=== PATIENT | female | born 1990 | race American Indian/Alaskan Native ===

== ENCOUNTER 2016-08-03 14:57 | Emergency (ER) | payer MEDICAID ==
[2016-08-03 15:03] VITALS: BMI 45.1
[2016-08-03 15:07] VITALS: TEMP 98.6
[2016-08-03] MEDS ORDERED: Sodium Chloride 0.9% 1,000 ML IV STA ×2 (15:11→15:19)
--- NOTE | 2016-08-03 15:19 | ED PDOC ---
Arrival/HPI - General Chief Complaint: Female Genitourinary Time Seen by Provider: 08/03/16 15:08 Historian: Patient - History of Present Illness Narrative History of Present Illness (Text): 08/03/16 15:13 26 y/o female, no significant pmh, LMP 04/23/2016, , approx. 14 weeks , c/o pelvic cramp x 2 days and vaginal bleeding with fatigue started this morning with no fall or trauma. Pt. stated that she has urinary frequency/ urgency for the past 2 days with cramp, noted to have vaginal bleeding with 3 episodes of bright red blood this morning which the bleeding resolved, admits feeling fatigue today as well with dizziness earlier but resolved, no night sweat, no nausea or vomiting, no headache, no rash, no night sweat, no recent traveling, no coughing, no other medical or psychological complaints. Past Medical History - Provider Review Nursing Documentation Reviewed: Yes - Infectious Disease Hx of Infectious Diseases: None - Psychiatric Hx Anxiety: Yes Hx Substance Use: No - Surgical History Hx Section: Yes (2007) - Anesthesia Hx Anesthesia: Yes Hx Anesthesia Reactions: No Hx Malignant Hyperthermia: No Family/Social History - Physician Review Nursing Documentation Reviewed: Yes Family/Social History: Unknown Family HX Smoking Status: Never Smoked Hx Alcohol Use: Yes Hx Substance Use: No Allergies/Home Meds Allergies/Adverse Reactions: Allergies No Known Allergies Allergy (Verified 08/03/16 15:03) Home Medications: Home Meds Medication Instructions Recorded Confirmed Multivit/Folic Acid/I 1 tab PO DAILY 08/03/16 08/03/16 [] Review of Systems - Review of Systems Constitutional: Fatigue. absent: Fevers Eyes: absent: Vision Changes ENT: absent: Hearing Changes Respiratory: absent: SOB, Cough Cardiovascular: absent: Chest Pain Gastrointestinal: Abdominal Pain. absent: Nausea, Vomiting Genitourinary Female: Frequency, Vaginal Bleeding. absent: Dysuria, Hematuria, Urine Output Changes, Vaginal Discharge Musculoskeletal: absent: Arthralgias, Myalgias Skin: absent: Rash, Pruritis Neurological: Dizziness. absent: Headache, Focal Weakness, Gait Changes, Speech Changes, Facial Droop, Disequilibrium, Seizure Psychiatric: absent: Anxiety, Depression, Suicidal Ideation Physical Exam Vital Signs Reviewed: Yes Vital Signs Temp Pulse Resp BP Pulse Ox 08/03/16 15:05 98.6 F 82 19 99/66 L 97 Temperature: Afebrile Blood Pressure: Hypotensive Pulse: Regular Respiratory Rate: Normal Appearance: Positive for: Well-Appearing, Non-Toxic, Comfortable Pain Distress: Mild Mental Status: Positive for: Alert and Oriented X 3 - Systems Exam Head: Present: Atraumatic, Normocephalic Pupils: Present: PERRL Extroacular Muscles: Present: EOMI Conjunctiva: Present: Normal Ears: Present: NORMAL TM, Normal Canal. No: Erythema Mouth: Present: Moist Mucous Membranes Neck: Present: Normal Range of Motion Respiratory/Chest: Present: Clear to Auscultation, Good Air Exchange. No: Respiratory Distress, Accessory Muscle Use Cardiovascular: Present: Regular Rate and Rhythm, Normal S1, S2. No: Murmurs Abdomen: Present: Tenderness (mild suprapubic tenderness, no RLQ/RUQ tenderness. ), Normal Bowel Sounds. No: Distention, Peritoneal Signs, Rebound, Guarding Genitourinary/Pelvic Exam: Present: Normal External Genitalia, Cervical os Closed, Other (Female hospital director: YOU Tolliver). No: Vaginal Discharge, Vaginal Bleeding (bright red blood clot noted on the vaginal canal), Vaginal Lesions, Adenexal Tenderness, Adenexal Mass, Cervical Motion Tendernes, Odor Back: Present: Normal Inspection. No: CVA Tenderness Upper Extremity: Present: Normal Inspection. No: Cyanosis, Edema Lower Extremity: Present: Normal Inspection. No: Edema Neurological: Present: GCS=15, Speech Normal, Motor Func Grossly Intact, Gait Normal, Memory Normal Skin: Present: Warm, Dry, Normal Color. No: Rashes Psychiatric: Present: Alert, Oriented x 3, Normal Insight, Normal Concentration Medical Decision Making ED Course and Treatment: 08/03/16 15:11 Differential: Threatened vs. cystitis vs. dehydration vs. anemia -labs/ua/beta hcg -transvaginal sonogram -IVF/tylenol -psychology department chair -will the obgyn organic preparation analyst 08/03/16 17:50 -Labs are non-significant with hgb 10.9 and beta hcg 42398 -UA show no UTI -sonogram show: Single live intrauterine gestation of approximately 15 weeks 1 day gestational age. Please note that anatomic evaluation was not performed at this time. No evidence placenta previa. Transverse lie. heart rate 143. Cervix closed. -Pt. has no pain now. -Blood is O negative, rhogam ordered. Dr. Mcclain agreed on the order. -Pt. is walking around now without feeling fatigue or tired. -There is no active bleeding. -Discharge home with education on pelvic rest, bed rest, avoid exercise and gym , no excessive walking, no sexual activities until clear by your own obgyn, follow up with your own pmd and obgyn within 2 days, return to the ER for any new or worsening signs or symptoms. - Lab Interpretations Lab Results: 08/03/16 15:20 08/03/16 15:20 Lab Results 08/03/16 15:20: Blood Type O NEGATIVE, Antibody Screen Negative, BBK History Checked No verified bt 08/03/16 15:20: Beta HCG, Quant 81461.00 H 08/03/16 15:20: Sodium 133, Potassium 3.7, Chloride 102, Carbon Dioxide 25, Anion Gap 10, BUN 9, Creatinine 0.6, Est GFR ( Amer) > 60, Est GFR (Non- Af Amer) > 60, Random Glucose 82, Calcium 9.4, Total Bilirubin 0.4, AST 23, ALT 27, Alkaline Phosphatase 63, Total Protein 7.2, Albumin 3.6, Globulin 3.6, Albumin/Globulin Ratio 1.0 L 08/03/16 15:20: Urine Color Yellow, Urine Appearance Sl cloudy, Urine pH 6.5, Ur Specific [place] 1.025, Urine Protein Negative, Urine Glucose (UA) Negative, Urine Ketones Negative, Urine Blood Negative, Urine Nitrate Negative, Urine Bilirubin Negative, Urine Urobilinogen 1.0 H, Ur Leukocyte Esterase Negative 08/03/16 15:20: WBC 7.9, RBC 3.82, Hgb 10.9 L, Hct 31.4 L, MCV 82.2, MCH 28.5, MCHC 34.7, RDW 12.8, Plt Count 380, MPV 8.6, Gran % 54.2, Lymph % (Auto) 34.7, [place] % (Auto) 7.4 H, Eos % (Auto) 3.4, Baso % (Auto) 0.3, Gran # 4.28, Lymph # 2.7, [place] # 0.6, Eos # 0.3, Baso # 0.02 I have reviewed the lab results: Yes Interpretation: Abnormal lab values (beta hcg 15809, hgb 10.9) - RAD Interpretation Radiology Orders: 08/03/16 15:11 AGE [US] Stat HISTORY: +, vaginal bleeding COMPARISON: Not available TECHNIQUE: Transabdominal FINDINGS: The examination demonstrates a single live intrauterine gestation. The fetus is in transverse lie with head towards maternal right. The heart rate is 143 beats per minute. There is a grossly normal quantity of amniotic fluid. A fundal placenta is noted. The cervix is closed and measures 3.7 cm in length. No evidence of placenta previa. biometry yields a gestational age of 15 weeks 1 day. CLEMENCIA by ultrasound is 01/24/2017. The right ovary measures 2.8 x 2.4 x 2.8 cm. Normal flow is demonstrated. The left ovary measures 2.6 x 2.3 x 1.6 cm. Normal flow is demonstrated. IMPRESSION: Single live intrauterine gestation of approximately 15 weeks 1 day gestational age. Please note that anatomic evaluation was not performed at this time. No evidence placenta previa. Transverse lie. heart rate 143. Cervix closed. Blanking Press Operator: Radiologist - Medication Orders Current Medication Orders: Discontinued Medications Acetaminophen (Tylenol 325mg Tab) 650 mg PO STAT STA Stop: 08/03/16 15:13 Last Admin: 08/03/16 15:31 Dose: 650 mg Sodium Chloride (Sodium Chloride 0.9%) 1,000 mls @ 999 mls/hr IV .Q1H1M STA Stop: 08/03/16 16:19 Last Admin: 08/03/16 15:27 Dose: 999 mls/hr - PA / ADMIN ASST / Resident Statement MD/DO has reviewed & agrees with the documentation as recorded. Disposition/Present on Arrival - Present on Arrival Any Indicators Present on Arrival: No History of DVT/PE: No History of Uncontrolled Diabetes: No Urinary Catheter: No History of Decub. Ulcer: No History Surgical Site Infection Following: None - Disposition Have Diagnosis and Disposition been Completed?: Yes Diagnosis: , Vaginal bleeding Disposition: HOME/ ROUTINE Disposition Time: 17:57 Patient Plan: Discharge Patient Problems: Current Active Problems Problem Status Onset Acute Vaginal bleeding Acute Condition: IMPROVED Additional Instructions: Discharge home with education on pelvic rest, bed rest, avoid exercise and gym, no excessive walking, no sexual activities until clear by your own obgyn, follow up with your own pmd and obgyn within 2 days, return to the ER for any new or worsening signs or symptoms. Referrals: Bing CROW,Leydi Red MD [Primary Care Provider] - Follow up with primary Maico Christy DO [Staff Provider] - Follow up with primary Forms: WORK NOTE
[2016-08-03 15:29] LABS: ADD MANUAL DIFF? NO
[2016-08-03 15:49] LABS: ALKALINE PHOSPHATASE 63 U/L (38-133); ALT/SGPT 27 U/L (7-56); AST/SGOT 23 U/L (15-39); BILIRUBIN,TOTAL 0.4 mg/dL (0.2-1.3); BLOOD UREA NITROGEN 9 mg/dL (7-21); CALCIUM 9.4 mg/dL (8.4-10.5); CARBON DIOXIDE 25 mmol/L (21-33); CHLORIDE 102 mmol/L (98-107); GFR AFRICAN-AMERICAN > 60; GLUCOSE,RANDOM 82 mg/dL (70-110); POTASSIUM 3.7 mmol/L (3.6-5.0); SODIUM 133 mmol/L (132-148); TOTAL PROTEIN 7.2 g/dL (5.8-8.3)
[2016-08-03 16:08] LABS: BASO # 0.02 K/mm3 (0.0-2.0); BASO % 0.3 % (0.0-3.0); EOS # 0.3 (0.0-0.7); EOS % 3.4 % (1.5-5.0); GRAN # 4.28 (1.4-6.5); GRAN % 54.2 % (50.0-68.0); HEMATOCRIT 31.4 % (36.0-48.0); LYMPH # 2.7 (1.2-3.4); LYMPH % 34.7 % (22.0-35.0); MEAN CELL VOLUME 82.2 fL (80.0-105.0); MEAN CORPUSCULAR HEMOGLOBIN 28.5 pg (25.0-35.0); MEAN CORPUSCULAR HGB CONC 34.7 g/dl (31.0-37.0); MEAN PLATELET VOLUME 8.6 fl (7.0-11.0); MONO # 0.6 (0.1-0.6); MONO % 7.4 % (1.0-6.0); PLATELET COUNT 380 10^3/uL (120.0-450.0); RED CELL DISTRIBUTION WIDTH 12.8 % (11.5-14.5); WHITE BLOOD COUNT 7.9 10^3/ul (4.5-11.0)
[2016-08-03 16:17] LABS: PH,URINE 6.5 (4.7-8.0); URINE BILIRUBIN NEGATIVE (NEGATIVE); URINE BLOOD NEGATIVE (NEGATIVE); URINE GLUCOSE (UA) NEGATIVE (NEGATIVE); URINE KETONE NEGATIVE (NEGATIVE); URINE LEUKOCYTE ESTERASE NEGATIVE Leu/uL (NEGATIVE); URINE PROTEIN NEGATIVE mg/dL (<30 mg/dL)
[2016-08-03 16:21] LABS: URINE APPEARANCE SL CLOUDY (CLEAR); URINE COLOR YELLOW (YELLOW)
--- NOTE | 2016-08-03 17:17 | US ---
PROCEDURE: Obstetrical ultrasound examination HISTORY: +, vaginal bleeding COMPARISON: Not available TECHNIQUE: Transabdominal FINDINGS: The examination demonstrates a single live intrauterine gestation. The fetus is in transverse lie with head towards maternal right. The heart rate is 143 beats per minute. There is a grossly normal quantity of amniotic fluid. A fundal placenta is noted. The cervix is closed and measures 3.7 cm in length. No evidence of placenta previa. biometry yields a gestational age of 15 weeks 1 day. CLEMENCIA by ultrasound is 01/24/2017. The right ovary measures 2.8 x 2.4 x 2.8 cm. Normal flow is demonstrated. The left ovary measures 2.6 x 2.3 x 1.6 cm. Normal flow is demonstrated. IMPRESSION: Single live intrauterine gestation of approximately 15 weeks 1 day gestational age. Please note that anatomic evaluation was not performed at this time. No evidence placenta previa. Transverse lie. heart rate 143. Cervix closed.
[2016-08-03 19:30] VITALS: BP 134/71; PULSE 86; RESP 20; O2SAT 98
== END 2016-08-03 19:53 | disposition home or self-care (01) ==
LOC: ED 14:57
DX: O46.92 Antepartum hemorrhage, unspecified, second trimester (principal); Z3A.15 15 weeks gestation of pregnancy
CPT/HCPCS: 76815; 80053; 81003; 84702; 85025; 86850; 86900; 96360; 99285; J2792; J7040

== ENCOUNTER 2016-09-02 17:33 | Emergency (ER) | payer MEDICAID ==
[2016-09-02 17:46] VITALS: BP 99/64; BMI 44.0
[2016-09-02 18:31] LABS: PH,URINE 6.5 (4.7-8.0); URINE BILIRUBIN SMALL (NEGATIVE); URINE BLOOD NEGATIVE (NEGATIVE); URINE GLUCOSE (UA) NEGATIVE (NEGATIVE); URINE KETONE 15 mg/dL (NEGATIVE); URINE LEUKOCYTE ESTERASE NEGATIVE Leu/uL (NEGATIVE); URINE PROTEIN TRACE mg/dL (<30 mg/dL)
[2016-09-02 18:35] LABS: URINE APPEARANCE SL CLOUDY (CLEAR); URINE COLOR YELLOW (YELLOW)
--- NOTE | 2016-09-02 18:44 | ED PDOC ---
Arrival/HPI - General Chief Complaint: Abdominal Pain Time Seen by Provider: 09/02/16 17:50 Historian: Patient - History of Present Illness Narrative History of Present Illness (Text): 09/02/16 18:41 26yo female present with complaint of suprapubic abdominal pain since this morning. she also notes dark yellow odorous urine. states she didn't call her OB, because they always refer her to ED anyway. Admits to nausea, states she takes antiemesis for it currently. Denies vomiting, vaginal discharge, diarrhea, constipation ,fever, chills, back pain, any other complaint. Past Medical History - Provider Review Nursing Documentation Reviewed: Yes - Infectious Disease Hx of Infectious Diseases: None - Psychiatric Hx Anxiety: Yes Hx Substance Use: No - Surgical History Hx Section: Yes (2007) - Anesthesia Hx Anesthesia: Yes Hx Anesthesia Reactions: No Hx Malignant Hyperthermia: No Family/Social History - Physician Review Nursing Documentation Reviewed: Yes Family/Social History: Unknown Family HX Smoking Status: Never Smoked Hx Alcohol Use: Yes Hx Substance Use: No Allergies/Home Meds Allergies/Adverse Reactions: Allergies No Known Allergies Allergy (Verified 09/02/16 17:44) Home Medications: Home Meds Medication Instructions Recorded Confirmed Multivit/Folic Acid/I 1 tab PO DAILY 08/03/16 09/02/16 [] Ondansetron HCl [Zofran] 4 mg PO PRN PRN 09/02/16 09/02/16 Review of Systems - Physician Review All systems were reviewed & negative as marked: Yes - Review of Systems Constitutional: Normal Eyes: Normal ENT: Normal Respiratory: Normal Cardiovascular: Normal Gastrointestinal: Abdominal Pain, Nausea. absent: Constipation, Diarrhea, Vomiting, Hematochezia, Hematemesis Genitourinary Female: Normal Musculoskeletal: Normal Skin: Normal Neurological: Normal Endocrine: Normal Hemo/Lymphatic: Normal Psychiatric: Normal Physical Exam Vital Signs Reviewed: Yes Vital Signs Temp Pulse Resp BP Pulse Ox 09/02/16 20:56 95 H 16 99 09/02/16 20:55 98.0 F 95 H 16 99 09/02/16 17:37 98.6 F 92 H 18 99/64 L 98 Temperature: Afebrile Blood Pressure: Normal Pulse: Regular Respiratory Rate: Normal Appearance: Positive for: Well-Appearing, Non-Toxic, Comfortable Pain Distress: None Mental Status: Positive for: Alert and Oriented X 3 - Systems Exam Head: Present: Atraumatic, Normocephalic Pupils: Present: PERRL Extroacular Muscles: Present: EOMI Conjunctiva: Present: Normal Mouth: Present: Moist Mucous Membranes Neck: Present: Normal Range of Motion Respiratory/Chest: Present: Clear to Auscultation, Good Air Exchange. No: Respiratory Distress, Accessory Muscle Use Cardiovascular: Present: Regular Rate and Rhythm, Normal S1, S2. No: Murmurs Abdomen: Present: Normal Bowel Sounds, Other (Soft). No: Tenderness, Distention , Peritoneal Signs, Rebound, Guarding, McBurney's Point Tender, Rovsing's Sign Present Back: Present: Normal Inspection Upper Extremity: Present: Normal Inspection. No: Cyanosis, Edema Lower Extremity: Present: Normal Inspection. No: Edema Neurological: Present: GCS=15, CN II-XII Intact, Speech Normal Skin: Present: Warm, Dry, Normal Color. No: Rashes Psychiatric: Present: Alert, Oriented x 3, Normal Insight, Normal Concentration Medical Decision Making ED Course and Treatment: 09/03/16 01:09 PT in ED for stated history. She denied vaginal bleeding. US FINDINGS: A limited study only was performed, in the emergency department. Single fetus identified, cephalic position. Calculated sonographic gestational age is 19 weeks, 3 days. Estimated delivery date is 01/24/2017. heart motion visualized, at 143 beats/min. The anatomy was not specifically assessed on this exam. Posterior and fundal location of the placenta. No evidence of placental abruption. No evidence of placenta previa. SURINDER was not measured. Cervical length is 3.7 cm (normal greater than 3 cm), measured transabdominally. Ovaries could not be visualized. IMPRESSION: 19 week, 3 day intrauterine with heart motion. No acute abnormality identified on this limited exam. She have cystitis and was treated with Macrobic. Result was DW the pt. she have a OB and was referred to her OB. TRT ED for any new or worsening symptoms. - Lab Interpretations Lab Results: Lab Results 09/02/16 18:18: Urine Color Yellow, Urine Appearance Sl cloudy, Urine pH 6.5, Ur Specific [place] 1.020, Urine Protein Trace H, Urine Glucose (UA) Negative, Urine Ketones 15 H, Urine Blood Negative, Urine Nitrate Positive H, Urine Bilirubin Small H, Urine Urobilinogen 1.0 H, Ur Leukocyte Esterase Negative, Urine RBC 0 - 2, Urine WBC 1 - 3, Ur Epithelial Cells 4 - 5, Urine Bacteria Mod - RAD Interpretation Radiology Orders: 09/02/16 18:02 AGE [US] Stat - Medication Orders Current Medication Orders: Discontinued Medications Nitrofurantoin Macrocrystals (Macrobid) 100 mg PO ONCE STA Stop: 09/02/16 20:33 Last Admin: 09/02/16 20:53 Dose: 100 mg Disposition/Present on Arrival - Present on Arrival Any Indicators Present on Arrival: No History of DVT/PE: No History of Uncontrolled Diabetes: No Urinary Catheter: No History of Decub. Ulcer: No History Surgical Site Infection Following: None - Disposition Have Diagnosis and Disposition been Completed?: Yes Diagnosis: UTI (urinary tract infection) Disposition: HOME/ ROUTINE Disposition Time: 20:35 Patient Plan: Discharge Condition: STABLE Discharge Instructions (ExitCare): Urinary Tract Infection in Women (ED) Additional Instructions: Follow up with your OB Return to ED for any new or worsening symptoms Prescriptions: Nitrofurantoin Macrocrystals [Macrobid] 100 mg PO BID #14 cap Referrals: Brian Liu, [Primary Care Provider] - Follow up with primary Forms: WORK NOTE
[2016-09-02 18:48] LABS: URINE RBC 0 - 2 /hpf (0-2)
[2016-09-02 18:49] LABS: URINE BACTERIA MOD (NEG)
--- NOTE | 2016-09-02 20:25 | US ---
EXAM: US After First Trimester, Transabdominal CLINICAL HISTORY: 26 years old, female; Pain; complicated by abdominal or pelvic pain; Generalized abdominal pain; Second trimester; Gestational age or lmp: 19 weeks 5 days; TECHNIQUE: Real-time transabdominal obstetrical ultrasound of the maternal pelvis and a second or third trimester with image documentation. EXAM DATE/TIME: 09/02/2016 6:02 PM COMPARISON: Prior obstetrical ultrasound of 08/03/2016 FINDINGS: A limited study only was performed, in the emergency department. Single fetus identified, cephalic position. Calculated sonographic gestational age is 19 weeks, 3 days. Estimated delivery date is 01/24/2017. heart motion visualized, at 143 beats/min. The anatomy was not specifically assessed on this exam. Posterior and fundal location of the placenta. No evidence of placental abruption. No evidence of placenta previa. SURINDER was not measured. Cervical length is 3.7 cm (normal greater than 3 cm), measured transabdominally. Ovaries could not be visualized. IMPRESSION: 19 week, 3 day intrauterine with heart motion. No acute abnormality identified on this limited exam. See above for remaining findings.
[2016-09-02 20:56] VITALS: PULSE 95; RESP 16; TEMP 98; O2SAT 99
== END 2016-09-02 20:57 | disposition home or self-care (01) ==
LOC: ED 17:33
DX: O23.42 Unspecified infection of urinary tract in pregnancy, second trimester (principal); Z3A.19 19 weeks gestation of pregnancy

== ENCOUNTER 2017-08-23 18:13 | Emergency (ER) | payer MEDICAID ==
[2017-08-23 18:13] VITALS: BMI 44.0
[2017-08-23 18:35] VITALS: RESP 18; TEMP 98.1
--- NOTE | 2017-08-23 18:38 | ED PDOC ---
Arrival/HPI - General Chief Complaint: Back Pain Time Seen by Provider: 08/23/17 18:37 Historian: Patient - History of Present Illness Narrative History of Present Illness (Text): 08/23/17 18:38 27 year old female, pmh including UTI, nkda, complaining of lt. lower back pain x 2 weeks with no fall or trauma. Aching pain, aggravated by movement, non- radiating, no numbness or tingling no rash, no night sweat, no headache or neck pain, no other medical or psychological complaints. Past Medical History - Provider Review Nursing Documentation Reviewed: Yes - Infectious Disease Hx of Infectious Diseases: None - Psychiatric Hx Anxiety: Yes Hx Substance Use: No - Surgical History Hx Section: Yes (2007) - Anesthesia Hx Anesthesia: Yes Hx Anesthesia Reactions: No Hx Malignant Hyperthermia: No Family/Social History - Physician Review Nursing Documentation Reviewed: Yes Family/Social History: Unknown Family HX Smoking Status: Never Smoked Hx Alcohol Use: Yes Frequency of alcohol use: Socially Hx Substance Use: No Allergies/Home Meds Allergies/Adverse Reactions: Allergies No Known Allergies Allergy (Verified 08/23/17 18:35) Review of Systems - Review of Systems Constitutional: absent: Fatigue, Fevers Eyes: absent: Vision Changes ENT: absent: Hearing Changes Respiratory: absent: SOB, Cough Cardiovascular: absent: Chest Pain Gastrointestinal: absent: Abdominal Pain, Nausea, Vomiting Musculoskeletal: Back Pain. absent: Arthralgias Skin: absent: Rash, Pruritis Neurological: absent: Headache, Dizziness Psychiatric: absent: Anxiety, Depression, Suicidal Ideation Physical Exam Vital Signs Reviewed: Yes Vital Signs Temp Pulse Resp BP Pulse Ox 08/23/17 20:32 98.1 F 80 18 113/62 100 08/23/17 20:15 98.1 F 79 18 102/60 100 08/23/17 18:32 98.1 F 89 18 122/77 99 Temperature: Afebrile Blood Pressure: Normal Pulse: Regular Respiratory Rate: Normal Appearance: Positive for: Well-Appearing, Non-Toxic, Comfortable Pain Distress: Moderate Mental Status: Positive for: Alert and Oriented X 3 - Systems Exam Head: Present: Atraumatic, Normocephalic Pupils: Present: PERRL Extroacular Muscles: Present: EOMI Conjunctiva: Present: Normal Mouth: Present: Moist Mucous Membranes Neck: Present: Normal Range of Motion Respiratory/Chest: Present: Clear to Auscultation, Good Air Exchange. No: Respiratory Distress, Accessory Muscle Use Cardiovascular: Present: Regular Rate and Rhythm, Normal S1, S2. No: Murmurs Abdomen: No: Tenderness, Distention, Peritoneal Signs Back: Present: Normal Inspection, Paraspinal Tenderness (+ttp on the lt. paraspinal muscle region of the lumbar Spine). No: CVA Tenderness, Midline Tenderness, Pain with Leg Raise, Decubitus Ulcer Upper Extremity: Present: Normal Inspection. No: Cyanosis, Edema Lower Extremity: Present: Normal Inspection. No: Edema Neurological: Present: GCS=15, CN II-XII Intact, Speech Normal, Motor Func Grossly Intact, Gait Normal, Memory Normal Skin: Present: Warm, Dry, Normal Color. No: Rashes Psychiatric: Present: Alert, Oriented x 3, Normal Insight, Normal Concentration Medical Decision Making ED Course and Treatment: 08/23/17 18:48 -Urine hcg -Urinalysis -LS spine xray -Toradol and valium 08/23/17 20:21 -Urine hcg is negative -Urinalysis show no UTI -LS spine xray show no fracture or subluxation -Pt. feels completely relief, request to be discharged home -Discharge home with motrin, flexeril, lidoderm patch, follow up with your own pmd within 2 days, return to the ER for any new or worsening signs or symptoms. - Lab Interpretations Lab Results: Lab Results 08/23/17 18:48: Urine Color Colorless, Urine Appearance Clear, Urine pH 6.0, Ur Specific [place] 1.025, Urine Protein Negative, Urine Glucose (UA) Negative, Urine Ketones Negative, Urine Blood Negative, Urine Nitrate Negative, Urine Bilirubin Negative, Urine Urobilinogen 0.2, Ur Leukocyte Esterase Negative - RAD Interpretation Radiology Orders: 08/23/17 18:44 LS SPINE WITH OBL > 18 YRS OLD [RAD] Stat unremarkable radiograph of the lumbar spine Customs Officer: Radiologist - Medication Orders Current Medication Orders: Discontinued Medications Diazepam (Valium) 5 mg PO ONCE ONE PRN Reason: Protocol Stop: 08/23/17 18:45 Last Admin: 08/23/17 19:01 Dose: 5 mg Ketorolac Tromethamine (Toradol) 60 mg IM STAT STA Stop: 08/23/17 18:45 Last Admin: 06/10/18 19:01 Dose: 60 mg MAR Pain Assessment Document 08/23/17 19:01 LA (Rec: 08/23/17 19:01 LA [id number]) Pain Reassessment Is this a pain reassessment? No Sleep Is patient sleeping during reassessment? No Presence of Pain Presence of Pain Yes Pain Scale Used Pain Scale Used Numeric Location Upper or Lower Lower Pain Location Body Site Back Description Description Intermittent Intensity of Pain at present 4 IM Administration Charges Document 08/23/17 19:01 LA (Rec: 08/23/17 19:01 LA [id number]) Injection Site MAR Injection Site Right Gluteus Fredo Charges for Administration # of IM Administrations 1 Re-Assess: MAR Pain Assessment Document 08/23/17 20:01 LA (Rec: 08/23/17 20:32 LA [id number]) Pain Reassessment Is this a pain reassessment? Yes Sleep Is patient sleeping during reassessment? Yes - PA / CORRECTIONAL SUPERVISOR LIEUTENANT / Resident Statement MD/DO has reviewed & agrees with the documentation as recorded. Disposition/Present on Arrival - Present on Arrival Any Indicators Present on Arrival: No History of DVT/PE: No History of Uncontrolled Diabetes: No Urinary Catheter: No History of Decub. Ulcer: No History Surgical Site Infection Following: None - Disposition Have Diagnosis and Disposition been Completed?: Yes Diagnosis: Low back pain Disposition: HOME/ ROUTINE Disposition Time: 18:48 Patient Plan: Discharge Condition: IMPROVED Additional Instructions: -Discharge home with motrin, flexeril, lidoderm patch, follow up with your own pmd within 2 days, return to the ER for any new or worsening signs or symptoms. Prescriptions: Cyclobenzaprine [Cyclobenzaprine HCl] 10 mg PO TID PRN #21 tab PRN Reason: Other Ibuprofen [Motrin] 600 mg PO QID PRN #30 tab PRN Reason: Other Lidocaine 5% [Lidoderm] 1 patch TOP DAILY PRN #14 patch PRN Reason: Other Referrals: [facility] [place]] - Follow up with primary Forms: WORK NOTE
[2017-08-23 19:55] LABS: URINE BILIRUBIN NEGATIVE (NEGATIVE); URINE BLOOD NEGATIVE (NEGATIVE); URINE GLUCOSE (UA) NEGATIVE (NEGATIVE); URINE LEUKOCYTE ESTERASE NEGATIVE Leu/uL (NEGATIVE); URINE PROTEIN NEGATIVE mg/dL (<30 mg/dL); URINE UROBILINOGEN 0.2 E.U./dL (<1 E.U./dL)
[2017-08-23 19:57] LABS: URINE APPEARANCE CLEAR (CLEAR); URINE COLOR COLORLESS (YELLOW)
[2017-08-23 20:16] VITALS: O2SAT 100
[2017-08-23 20:34] VITALS: BP 113/62; PULSE 80
--- NOTE | 2017-08-24 10:07 | RAD ---
PROCEDURE: Radiographs of the Lumbar Spine. HISTORY: low back pain x 2 weeks COMPARISON: No prior. FINDINGS: BONES: Normal alignment. No listhesis. No fracture. DISC SPACES: Unremarkable. OTHER FINDINGS: None. IMPRESSION: Unremarkable radiographs of the lumbar spine.
== END 2017-08-23 20:32 | disposition home or self-care (01) ==
LOC: ED 18:13
DX: M54.5 Low back pain (principal)
CPT/HCPCS: 72110; 81003; 96372; 99283; J1885

== ENCOUNTER 2018-01-03 11:11 | Emergency (ER) | payer MEDICAID ==
[2018-01-03 11:12] VITALS: BMI 44.0
[2018-01-03 11:26] VITALS: BP 128/86; PULSE 71; RESP 18; TEMP 98.3; O2SAT 98
--- NOTE | 2018-01-03 11:49 | ED PDOC ---
Arrival/HPI - General Historian: Patient - History of Present Illness Narrative History of Present Illness (Text): 01/03/18 11:41 28yo female morbidly obese female with no pmhx who present with complaint of suprapubic and lower back pain x 3days. +Nausea and urinary frequency. Denies dysuria, hematuria, vomiting, diarrhea, constipation, fever, chills, vaginal discharge, any other complaint. Notes that her LMP was November 28. <Dilcia Esquivel A - Last Filed: 01/03/18 15:47> <Hugo Mcclain - Last Filed: 01/05/18 20:58> - General Chief Complaint: Abdominal Pain Time Seen by Provider: 01/03/18 11:33 Past Medical History - Provider Review Nursing Documentation Reviewed: Yes - Infectious Disease Hx of Infectious Diseases: None - Psychiatric Hx Anxiety: Yes Hx Substance Use: No - Surgical History Hx Section: Yes (2007) - Anesthesia Hx Anesthesia: Yes Hx Anesthesia Reactions: No Hx Malignant Hyperthermia: No <Dilcia Esquivel - Last Filed: 01/03/18 15:47> Family/Social History - Physician Review Nursing Documentation Reviewed: Yes Family/Social History: Unknown Family HX Smoking Status: Never Smoked Hx Alcohol Use: Yes Frequency of alcohol use: Socially Hx Substance Use: No <Dilcia Esquivel A - Last Filed: 01/03/18 15:47> Allergies/Home Meds <Dilcia Esquivel A - Last Filed: 01/03/18 15:47> <Hugo Mcclain - Last Filed: 01/05/18 20:58> Allergies/Adverse Reactions: Allergies No Known Allergies Allergy (Verified 01/03/18 11:26) Review of Systems - Physician Review All systems were reviewed & negative as marked: Yes - Review of Systems Constitutional: Normal Eyes: Normal ENT: Normal Respiratory: Normal Cardiovascular: Normal Gastrointestinal: Abdominal Pain, Nausea. absent: Constipation, Diarrhea, Vomiting, Hematochezia, Hematemesis Genitourinary Female: Normal Musculoskeletal: Back Pain Skin: Normal Neurological: Normal Endocrine: Normal Hemo/Lymphatic: Normal Psychiatric: Normal <Dilcia Esquivel A - Last Filed: 01/03/18 15:47> Physical Exam Vital Signs Reviewed: Yes Vital Signs Temp Pulse Resp BP Pulse Ox 01/03/18 11:24 98.3 F 71 18 128/86 98 Temperature: Afebrile Blood Pressure: Normal Pulse: Regular Respiratory Rate: Normal Appearance: Positive for: Well-Appearing, Non-Toxic, Comfortable Pain Distress: None Mental Status: Positive for: Alert and Oriented X 3 - Systems Exam Head: Present: Atraumatic, Normocephalic Pupils: Present: PERRL Extroacular Muscles: Present: EOMI Conjunctiva: Present: Normal Mouth: Present: Moist Mucous Membranes Neck: Present: Normal Range of Motion Respiratory/Chest: Present: Clear to Auscultation, Good Air Exchange. No: Respiratory Distress, Accessory Muscle Use Cardiovascular: Present: Regular Rate and Rhythm, Normal S1, S2. No: Murmurs Abdomen: Present: Tenderness (Suprapubic tenderness), Normal Bowel Sounds, Other (soft). No: Distention, Peritoneal Signs, Rebound, Guarding, McBurney's Point Tender, Rovsing's Sign Present Genitourinary/Pelvic Exam: No: Vaginal Discharge, Adenexal Tenderness, Cervical Motion Tendernes Back: Present: Normal Inspection. No: CVA Tenderness, Midline Tenderness, Paraspinal Tenderness Upper Extremity: Present: Normal Inspection. No: Cyanosis, Edema Lower Extremity: Present: Normal Inspection. No: Edema Neurological: Present: GCS=15, CN II-XII Intact, Speech Normal Skin: Present: Warm, Dry, Normal Color. No: Rashes Psychiatric: Present: Alert, Oriented x 3, Normal Insight, Normal Concentration <Dilcia Esquivel A - Last Filed: 01/03/18 15:47> Vital Signs Temp Pulse Resp BP Pulse Ox 01/03/18 11:24 98.3 F 71 18 128/86 98 <Hugo Mcclain - Last Filed: 01/05/18 20:58> Medical Decision Making ED Course and Treatment: 01/03/18 15:47 28yo female in ED for suprapubic and lower back pain x 3days. she was not in any distress in ED. she have no CVA tenderness. Ambulatory and neurologically intact. she had no CMT or adnexal tenderness. Afebrile. UA - Negative Transvaginal US - Ovarian cyst Result was DW the pt. Her pain was controlled in ED with medication. She have a [employer] MEMBER and was referred to her [employer] MEMBER. <Dilcia Esquivel A - Last Filed: 01/03/18 15:47> - Lab Interpretations Lab Results: Lab Results 01/03/18 11:30: Urine Color Yellow, Urine Appearance Clear, Urine pH 6.0, Ur Specific [place] 1.025, Urine Protein Trace H, Urine Glucose (UA) Negative, Urine Ketones Negative, Urine Blood Trace-intact H, Urine Nitrate Negative, Urine Bilirubin Negative, Urine Urobilinogen 0.2, Ur Leukocyte Esterase Negative, Urine RBC 0 - 2, Urine WBC 0 - 2, Ur Epithelial Cells 3 - 4, Urine Bacteria Small, Urine HCG, Qual Negative - RAD Interpretation Radiology Orders: 01/03/18 12:01 TRANSVAGINAL [US] Stat - Medication Orders Current Medication Orders: Discontinued Medications Ibuprofen (Motrin Tab) 600 mg PO STAT STA Stop: 01/03/18 14:09 Last Admin: 01/03/18 14:51 Dose: 600 mg MAR Pain/Vitals Document 01/03/18 14:51 EQ (Rec: 01/03/18 14:51 EQ [id number]) Pain Reassessment Is This A Pain ReAssessment? No Sleep Is patient sleeping during reassessment? No Presence of Pain Presence of Pain Yes <Hugo Mcclain - Last Filed: 01/05/18 20:58> - PA / FOUNDRY TENDER / Resident Statement / has reviewed & agrees with the documentation as recorded. <Hugo Mcclain - Last Filed: 01/05/18 20:58> Disposition/Present on Arrival - Present on Arrival Any Indicators Present on Arrival: No History of DVT/PE: No History of Uncontrolled Diabetes: No Urinary Catheter: No History of Decub. Ulcer: No History Surgical Site Infection Following: None - Disposition Have Diagnosis and Disposition been Completed?: Yes Disposition Time: 14:00 Patient Plan: Discharge <Dilcia Esquivel - Last Filed: 01/03/18 15:47> <Hugo Mcclain - Last Filed: 01/05/18 20:58> - Disposition Diagnosis: Abdominal pain, Pelvic pain Disposition: HOME/ ROUTINE Condition: STABLE Discharge Instructions (ExitCare): Acute Abdomen (Belly Pain), Adult (DC) Additional Instructions: Follow up with your [employer] MEMBER/PMD Return to ED for any new or worsening symptoms Prescriptions: RX: Ibuprofen [Motrin Tab] 600 mg PO Q6 #15 tab Referrals: Nneka Jensen MD [Staff Provider] - Follow up with primary Forms: [facility] (Sammarinese)
[2018-01-03 11:53] LABS: URINE BILIRUBIN NEGATIVE (NEGATIVE); URINE BLOOD TRACE-INTACT (NEGATIVE); URINE GLUCOSE (UA) NEGATIVE (NEGATIVE); URINE LEUKOCYTE ESTERASE NEGATIVE Leu/uL (NEGATIVE); URINE PROTEIN TRACE mg/dL (<30 mg/dL); URINE UROBILINOGEN 0.2 E.U./dL (<1 E.U./dL)
[2018-01-03 11:55] LABS: URINE APPEARANCE CLEAR (CLEAR); URINE COLOR YELLOW (YELLOW)
[2018-01-03 11:56] LABS: HCG,QUALITATIVE URINE NEGATIVE (NEGATIVE)
[2018-01-03 12:08] LABS: URINE BACTERIA SMALL (NEG); URINE RBC 0 - 2 /hpf (0-2); URINE WBC 0 - 2 /hpf (0-6)
--- NOTE | 2018-01-03 14:33 | US ---
Date of service: 01/03/2018 HISTORY: Suprapubic pain. LMP 11/27/2017. COMPARISON: None available. TECHNIQUE: Transvaginal only. Real -time technique with 2D, duplex and color Doppler FINDINGS: UTERUS: Measures 3.9 x 4.8 x 6.5 cm. Normal in size and appearance. No fibroid or other mass lesion seen. ENDOMETRIUM: Measures 3.6 mm in diameter. Unremarkable. CERVIX: No cervical abnormality identified. Cervical length 3.75 cm RIGHT OVARY: Measures 5.5 x 5.6 x 5.9 cm. No solid mass. Normal flow. Simple cyst 5.2 x 5.3 x 4.9 cm LEFT OVARY: Measures 1.8 x 2.3 x 2.6 cm. No solid mass. Normal flow. FREE FLUID: No significant free fluid noted. OTHER FINDINGS: None. IMPRESSION: Unremarkable uterus, endometrial echo complex and left adnexa. Simple right ovarian cyst.
== END 2018-01-03 15:07 | disposition home or self-care (01) ==
LOC: ED 11:11
DX: R10.2 Pelvic and perineal pain (principal); E66.01 Morbid (severe) obesity due to excess calories

== ENCOUNTER 2018-01-25 09:24 | Emergency (ER) | payer MEDICAID ==
[2018-01-25 09:36] VITALS: BMI 45.1
[2018-01-25 09:38] VITALS: TEMP 98.3; O2SAT 100
--- NOTE | 2018-01-25 10:09 | ED PDOC ---
Arrival/HPI <Ruiz George - Last Filed: 01/25/18 12:06> - General Historian: Patient - History of Present Illness Narrative History of Present Illness (Text): 01/25/18 10:06 his is a 28 year old female who presents with worsening left upper forearm/elbow pain, swelling since falling backwards on her left hand on thursday night. Tingling has not changed, swelling has improved, erythema has improved. Pt has been taking Motrin 600 mg PO every 2-3 hours without relief. [place]R done at [facility] [place] negative for [place] and pt was discharged home with sling and referral for ortho. Pt has not been able to follow up with ortho yet. Pt has had trouble sleeping and ROM is limited secondary to pain. Denies fever, chills, numbness, decreased engineering teacher strength. Denies use of hormonal therapy, history of blood clots, cancer. PMD: none PMH: none PSH:c/s x2; 2007 and 2016 Meds: Motrin as needed Allx: NKDA <Humza Rivera - Last Filed: 01/25/18 13:55> - General Chief Complaint: Upper Extremity Problem/Injury Time Seen by Provider: 01/25/18 09:25 Past Medical History - Provider Review Nursing Documentation Reviewed: Yes - Infectious Disease Hx of Infectious Diseases: None - Psychiatric Hx Anxiety: Yes Hx Substance Use: No - Surgical History Hx Section: Yes (2007) - Anesthesia Hx Anesthesia: Yes Hx Anesthesia Reactions: No Hx Malignant Hyperthermia: No <Humza Rivera - Last Filed: 01/25/18 13:55> Family/Social History - Physician Review Nursing Documentation Reviewed: Yes Family/Social History: Unknown Family HX Smoking Status: Never Smoked Hx Alcohol Use: Yes Frequency of alcohol use: Socially Hx Substance Use: No <Humza Rivera - Last Filed: 01/25/18 13:55> Allergies/Home Meds <Ruiz George - Last Filed: 01/25/18 12:06> <Humza Rivera - Last Filed: 01/25/18 13:55> Allergies/Adverse Reactions: Allergies No Known Allergies Allergy (Verified 01/03/18 11:26) Review of Systems - Review of Systems Constitutional: Normal Eyes: Normal ENT: Normal Respiratory: Normal Cardiovascular: Normal Gastrointestinal: Normal Genitourinary Female: Normal Musculoskeletal: Other (left arm pain s/p fall) Skin: Normal Neurological: Normal Endocrine: Normal Hemo/Lymphatic: Normal Psychiatric: Normal <Humza Rivera - Last Filed: 01/25/18 13:55> Physical Exam Vital Signs Temp Pulse Resp BP Pulse Ox 01/25/18 09:37 98.3 F 59 L 18 112/68 100 <Ruiz George - Last Filed: 01/25/18 12:06> Vital Signs Reviewed: Yes Vital Signs Temp Pulse Resp BP Pulse Ox 01/25/18 09:37 98.3 F 59 L 18 112/68 100 Temperature: Afebrile Blood Pressure: Normal Pulse: Regular Respiratory Rate: Normal Appearance: Positive for: Well-Appearing, Non-Toxic Pain Distress: None Mental Status: Positive for: Alert and Oriented X 3 - Systems Exam Head: Present: Atraumatic, Normocephalic Extroacular Muscles: Present: EOMI Mouth: Present: Moist Mucous Membranes Neck: Present: Normal Range of Motion Cardiovascular: Present: Regular Rate and Rhythm Abdomen: Present: Normal Bowel Sounds, Other (morbid obesity). No: Tenderness, Distention Upper Extremity: Present: NORMAL PULSES, Tenderness, Swelling, Erythema, Neurovascularly Intact, Capillary Refill < 2s. No: Normal Inspection, Normal ROM (limited ROM secondary to pain, passive rom is WNL), Temperature Abnormalties Lower Extremity: Present: Normal Inspection, NORMAL PULSES. No: Edema, CALF TENDERNESS Neurological: Present: GCS=15 Skin: Present: Warm, Dry, Normal Color Psychiatric: Present: Alert, Oriented x 3 <Humza Rivera - Last Filed: 01/25/18 13:55> Medical Decision Making ED Course and Treatment: 01/25/18 11:00 28 year old female presents to the Emergency department complaining of left upper extremity discomfort. In agreement with resident note which contains more details about the patient. Patient seen and evaluated with resident. Came up with plan and treatment together. - Lab Interpretations Lab Results: Lab Results 01/25/18 11:15: Urine HCG, Qual Negative - RAD Interpretation Radiology Orders: 01/25/18 10:14 ELBOW LEFT 3 VIEWS ROUTINE [RAD] Stat FOREARM LEFT [RAD] Stat HUMERUS LEFT [RAD] Stat DUPLEX UPPER EXTRM VEIN LEFT [US] Stat - Medication Orders Current Medication Orders: Discontinued Medications Oxycodone/Acetaminophen (Percocet 5/325 Mg Tab) 1 tab PO STAT STA Stop: 01/25/18 10:24 Last Admin: 01/25/18 11:22 Dose: 1 tab MAR Pain Assessment Document 01/25/18 11:22 EB (Rec: 01/25/18 11:23 EB [id number]) Pain Reassessment Is this a pain reassessment? No Presence of Pain Presence of Pain Yes Pain Scale Used Protocol: PSCALES Pain Scale Used Numeric Description Intensity of Pain at present 8 <Ruiz George - Last Filed: 01/25/18 12:06> ED Course and Treatment: 01/25/18 10:25 Urine test. Left forearm/humerus/elbow x-ray, left upper extremity doppler study. Percocet 5/325mg PO x1 for pain. Pt will find ride back home. 01/25/18 10:53 Preliminary left upper extremity doppler study is normal. 01/25/18 12:00 On re-evaluation, pt's ROM has improved after pain medications. Pulses are intact. Intact neurovascularly. Good capillary refill. No signs of compartment syndrome. Pt is resting comfortably. Will give f/u for orthopedics. Pt has sling at home. Pt instructed to not combine flexeril with alcohol or drugs and not to drive after taking the muscle relaxant. Pt understands and agrees with dischar ge plan. Re-evaluation Time: 12:00 Reassessment Condition: Re-examined, Improved <Humza Rivera - Last Filed: 01/25/18 13:55> - PA / GROUNDS AND NURSERY SPECIALIST / Resident Statement / has reviewed & agrees with the documentation as recorded. / has examined the patient and agrees with the treatment plan. - Scribe Statement The provider has reviewed the documentation as recorded by the Rosalvaibe Susan Pham. All medical record entries made by the Rosalvaibe were at my direction and person ally dictated by me. I have reviewed the chart and agree that the record accurately reflects my personal performance of the history, physical exam, medical decision making, and the department course for this patient. I have also personally directed, reviewed, and agree with the discharge instructions and disposition. <Ruiz George - Last Filed: 01/25/18 12:06> Disposition/Present on Arrival - Present on Arrival Any Indicators Present on Arrival: No - Disposition Have Diagnosis and Disposition been Completed?: Yes Disposition Time: 12:07 Patient Plan: Discharge <Ruiz George - Last Filed: 01/25/18 12:06> - Present on Arrival Any Indicators Present on Arrival: No History of DVT/PE: No History of Uncontrolled Diabetes: No Urinary Catheter: No History of Decub. Ulcer: No History Surgical Site Infection Following: None - Disposition Have Diagnosis and Disposition been Completed?: Yes <Humza Rivera - Last Filed: 01/25/18 13:55> - Disposition Diagnosis: Forearm contusion Discharge Instructions (ExitCare): Contusion (DC) Print Language: BANGLADESHI Prescriptions: Cyclobenzaprine [Cyclobenzaprine HCl] 10 mg PO PRN PRN #10 tab PRN Reason: Muscle Spasm Referrals: Dario Dow MD [Staff Provider] - Follow up with primary Forms: [facility] (Icelandic), SCHOOL NOTE
[2018-01-25] MEDS ORDERED: Oxycodone/Acetaminophen 5/325 mg Tab PO STA (10:23)
--- NOTE | 2018-01-25 11:13 | RAD ---
Date of service: 01/25/2018 PROCEDURE: Radiographs of the left elbow. HISTORY: left arm pain/swelling s/p fall COMPARISON: No prior. FINDINGS: BONES: Normal. No fracture. JOINTS: Normal. No osteoarthritis. SOFT TISSUES: Normal. JOINT EFFUSION: None. OTHER FINDINGS: None IMPRESSION: Unremarkable radiographs of the left elbow.
--- NOTE | 2018-01-25 11:17 | RAD ---
Date of service: 01/25/2018 PROCEDURE: Radiographs of the Left Forearm HISTORY: left arm pain/swelling s/p fall COMPARISON: None available. TECHNIQUE: Frontal and lateral views obtained. FINDINGS: BONES: No fracture or destructive lesion. JOINT SPACES: Unremarkable. OTHER FINDINGS: None. IMPRESSION: Unremarkable radiographs of the left forearm.
--- NOTE | 2018-01-25 11:18 | RAD ---
PROCEDURE: Radiographs of the left humerus. HISTORY: left arm pain/swelling s/p fall COMPARISON: None. FINDINGS: BONES: Normal. No fracture or focal lesion. SOFT TISSUES: Normal. OTHER FINDINGS: None. IMPRESSION: Normal radiographs of left humerus.
[2018-01-25 12:18] VITALS: BP 126/94; PULSE 58
[2018-01-25 12:26] VITALS: RESP 16
--- NOTE | 2018-01-25 18:19 | US ---
PROCEDURE: Left upper extremity venous ultrasound HISTORY: Arm pain and swelling. Evaluate for deep venous thrombosis. PHYSICIAN(S): Julio Lucero MD. FINDINGS: The visualized leftinternal jugular vein is sonographically normal and compressible. No evidence of obstruction or thrombus is seen. The visualized segments of the left subclavian vein are patent with normal waveforms. No sonographic evidence of obstruction or thrombosis is seen. The visualized deep venous system of the proximal leftupper extremity is sonographically normal and compressible. IMPRESSION: 1. No sonographic evidence for deep venous thrombosis in the visualized segments of the left upper extremity.
== END 2018-01-25 12:24 | disposition home or self-care (01) ==
LOC: ED 09:24
DX: S50.12XD Contusion of left forearm, subsequent encounter (principal); W19.XXXD Unspecified fall, subsequent encounter

== ENCOUNTER 2018-04-22 10:17 | Emergency (ER) | payer MEDICAID ==
[2018-04-22 10:18] VITALS: BMI 45.1
[2018-04-22 11:42] VITALS: TEMP 98.3
--- NOTE | 2018-04-22 11:53 | ED PDOC ---
Arrival/HPI - General Chief Complaint: Abdominal Pain Historian: Patient - History of Present Illness Narrative History of Present Illness (Text): 04/22/18 11:49 28 y/o female, no significant pmh, nkda, c/o nausea/vomiting with abdominal pain x 1 week with no recent traveling. Lower abdominal pain, associated with nausea/vomiting, no diarrhea, no vaginal bleeding or discharge, no numbness or tingling, no coughing and no URI symptoms, no night sweat, no rash, no palpitation, no change in vision, no other medical or psychological complaints. Past Medical History - Provider Review Nursing Documentation Reviewed: Yes - Infectious Disease Hx of Infectious Diseases: None - Reproductive Currently : No - Psychiatric Hx Anxiety: Yes Hx Substance Use: No - Surgical History Hx Section: Yes (2007) - Anesthesia Hx Anesthesia: Yes Hx Anesthesia Reactions: No Hx Malignant Hyperthermia: No Family/Social History - Physician Review Nursing Documentation Reviewed: Yes Family/Social History: Unknown Family HX Smoking Status: Never Smoked Hx Alcohol Use: Yes Hx Substance Use: No Allergies/Home Meds Allergies/Adverse Reactions: Allergies No Known Allergies Allergy (Verified 01/03/18 11:26) Review of Systems - Review of Systems Constitutional: absent: Fatigue, Fevers Eyes: absent: Vision Changes ENT: absent: Hearing Changes Respiratory: absent: SOB, Cough Cardiovascular: absent: Chest Pain Gastrointestinal: Abdominal Pain, Nausea, Vomiting. absent: Diarrhea Skin: absent: Rash, Pruritis Neurological: absent: Headache, Dizziness Psychiatric: absent: Anxiety, Depression, Suicidal Ideation Physical Exam Vital Signs Reviewed: Yes Vital Signs Temp Pulse Resp BP Pulse Ox 04/22/18 10:18 98.3 F 63 18 135/96 H 99 Temperature: Afebrile Blood Pressure: Hypertensive Pulse: Regular Respiratory Rate: Normal Appearance: Positive for: Well-Appearing, Non-Toxic, Comfortable Pain Distress: Mild Mental Status: Positive for: Alert and Oriented X 3 - Systems Exam Head: Present: Atraumatic, Normocephalic Pupils: Present: PERRL Extroacular Muscles: Present: EOMI Conjunctiva: Present: Normal Mouth: Present: Moist Mucous Membranes Neck: Present: Normal Range of Motion Respiratory/Chest: Present: Clear to Auscultation, Good Air Exchange. No: Respiratory Distress, Accessory Muscle Use Cardiovascular: Present: Regular Rate and Rhythm, Normal S1, S2. No: Murmurs Abdomen: Present: Tenderness (epigastric and left). No: Distention, Peritoneal Signs, Rebound, Guarding Back: Present: Normal Inspection Upper Extremity: Present: Normal Inspection. No: Cyanosis, Edema Lower Extremity: Present: Normal Inspection. No: Edema Neurological: Present: GCS=15, CN II-XII Intact, Speech Normal Skin: Present: Warm, Dry, Normal Color. No: Rashes Psychiatric: Present: Alert, Oriented x 3, Normal Insight, Normal Concentration Medical Decision Making ED Course and Treatment: 04/22/18 12:10 -labs -CT -IVF/pepcid -Observe and reassess 04/22/18 14:36 -Urine hcg is negative -Labs show no acute findings -UA show +UTI -Ct abdomen and pelvis show No acute intra-abdominal findings. -Pt. feels well, relief with fluid and medication given in the ER, will discharge home. -Pt. has no pain now. -Discharge home with macrobid, pepcid, bed rest, follow up with your own pmd and GI within 2 days, return to the ER for any new or worsening signs or symptoms. - RAD Interpretation Radiology Orders: Date of service: 04/22/2018 PROCEDURE: CT Abdomen and Pelvis with contrast HISTORY: nausea/vomiting/abdominal pain COMPARISON: None. TECHNIQUE: Contrast dose: Radiation dose: Total exam DLP = 1535.42 mGy-cm. This CT exam was performed using one or more of the following dose reduction techniques: Automated exposure control, adjustment of the mA and/or kV according to patient size, and/or use of iterative reconstruction technique. FINDINGS: LOWER THORAX: Unremarkable. LIVER: Unremarkable. No gross lesion or ductal dilatation. GALLBLADDER AND BILE DUCTS: Unremarkable. PANCREAS: Unremarkable. No gross lesion or ductal dilatation. SPLEEN: Unremarkable. ADRENALS: Unremarkable. No mass. KIDNEYS AND URETERS: Unremarkable. No hydronephrosis. No solid mass. VASCULATURE: Unremarkable. No aortic aneurysm. No aortic atherosclerotic calcification or mural plaque present. BOWEL: Unremarkable. No obstruction. No gross mural thickening. There is some fatty infiltration of the wall of the ascending colon which can be seen in chronic inflammatory bowel disease. Clinical correlation is suggested. APPENDIX: Normal appendix. PERITONEUM: Unremarkable. No free fluid. No free air. LYMPH NODES: Unremarkable. No enlarged lymph nodes. BLADDER: Unremarkable. REPRODUCTIVE: Unremarkable. BONES: No acute fracture. OTHER FINDINGS: None. IMPRESSION: No acute intra-abdominal findings. Industrial Editor: Radiologist - PA / MEDICAL SUPPORT SPECIALIST / Resident Statement MD/DO has reviewed & agrees with the documentation as recorded. Disposition/Present on Arrival - Present on Arrival Any Indicators Present on Arrival: No History of DVT/PE: No History of Uncontrolled Diabetes: No Urinary Catheter: No History of Decub. Ulcer: No History Surgical Site Infection Following: None - Disposition Have Diagnosis and Disposition been Completed?: Yes Diagnosis: UTI (urinary tract infection), Gastroenteritis Disposition: HOME/ ROUTINE Disposition Time: 14:38 Patient Plan: Discharge Patient Problems: Current Active Problems Problem Status Onset Gastroenteritis Acute UTI (urinary tract infection) Acute Condition: IMPROVED Additional Instructions: -Discharge home with macrobid, pepcid, zofran, bed rest, follow up with your own pmd and GI within 2 days, return to the ER for any new or worsening signs or symptoms. Prescriptions: Famotidine [Pepcid] 20 mg PO BID #14 tab Nitrofurantoin Macrocrystals [Macrobid] 100 mg PO BID #14 cap Ondansetron [Zofran] 4 mg PO Q8H PRN #10 tab PRN Reason: Nausea/Vomiting Referrals: Jo Ann Nugent MD [Primary Care Provider] - Follow up with primary Qasim Valenzuela MD [Medical Doctor] - Follow up with primary Forms: [facility] (Israeli), WORK NOTE
[2018-04-22] MEDS ORDERED: Sodium Chloride 0.9% 1,000 ML IV STA (12:07)
[2018-04-22 12:49] LABS: PH,URINE 7.5 (4.7-8.0); URINE BILIRUBIN NEGATIVE (NEGATIVE); URINE BLOOD NEGATIVE (NEGATIVE); URINE GLUCOSE (UA) NEGATIVE (NEGATIVE); URINE LEUKOCYTE ESTERASE TRACE Leu/uL (NEGATIVE); URINE PROTEIN NEGATIVE mg/dL (<30 mg/dL)
[2018-04-22 12:50] LABS: BASO # 0.02 K/mm3 (0.0-2.0); BASO % 0.4 % (0.0-3.0); EOS # 0.1 (0.0-0.7); EOS % 1.6 % (1.5-5.0); HEMOGLOBIN 11.5 g/dL (12.0-16.0); LYMPH # 2.8 (1.2-3.4); MEAN CELL VOLUME 84.5 fl (80.0-105.0); MEAN CORPUSCULAR HEMOGLOBIN 27.8 pg (25.0-35.0); MEAN PLATELET VOLUME 8.9 fl (7.0-11.0); MONO # 0.3 (0.1-0.6); MONO % 5.8 % (1.0-6.0); RBC 4.13 10^6/uL (3.5-6.1); RED CELL DISTRIBUTION WIDTH 13.3 % (11.5-14.5)
[2018-04-22 12:51] LABS: URINE APPEARANCE CLEAR (CLEAR); URINE COLOR YELLOW (YELLOW)
[2018-04-22 12:57] LABS: ALB/GLOB RATIO 1.1 (1.1-1.8); ALBUMIN 4.3 g/dL (3.0-4.8); ALT/SGPT 14 U/L (7-56); AST/SGOT 26 U/L (14-36); BLOOD UREA NITROGEN 14 mg/dL (7-21); CALCIUM 9.1 mg/dL (8.4-10.5); GFR NON-AFRICAN AMERICAN > 60; LIPASE 36 U/L (23-300)
[2018-04-22 13:03] LABS: URINE BACTERIA SMALL /hpf
--- NOTE | 2018-04-22 14:13 | CT ---
Date of service: 04/22/2018 PROCEDURE: CT Abdomen and Pelvis with contrast HISTORY: nausea/vomiting/abdominal pain COMPARISON: None. TECHNIQUE: Contrast dose: Radiation dose: Total exam DLP = 1535.42 mGy-cm. This CT exam was performed using one or more of the following dose reduction techniques: Automated exposure control, adjustment of the mA and/or kV according to patient size, and/or use of iterative reconstruction technique. FINDINGS: LOWER THORAX: Unremarkable. LIVER: Unremarkable. No gross lesion or ductal dilatation. GALLBLADDER AND BILE DUCTS: Unremarkable. PANCREAS: Unremarkable. No gross lesion or ductal dilatation. SPLEEN: Unremarkable. ADRENALS: Unremarkable. No mass. KIDNEYS AND URETERS: Unremarkable. No hydronephrosis. No solid mass. VASCULATURE: Unremarkable. No aortic aneurysm. No aortic atherosclerotic calcification or mural plaque present. BOWEL: Unremarkable. No obstruction. No gross mural thickening. There is some fatty infiltration of the wall of the ascending colon which can be seen in chronic inflammatory bowel disease. Clinical correlation is suggested. APPENDIX: Normal appendix. PERITONEUM: Unremarkable. No free fluid. No free air. LYMPH NODES: Unremarkable. No enlarged lymph nodes. BLADDER: Unremarkable. REPRODUCTIVE: Unremarkable. BONES: No acute fracture. OTHER FINDINGS: None. IMPRESSION: No acute intra-abdominal findings.
[2018-04-22] MEDS ORDERED: cefTRIAXone 1 gm 1 GM/100 ML BAG IVPB STA (14:36)
[2018-04-22 15:43] VITALS: O2SAT 100
[2018-04-22 15:56] VITALS: BP 137/85; PULSE 63; RESP 17
== END 2018-04-22 15:50 | disposition home or self-care (01) ==
LOC: ED 10:17
DX: K52.9 Noninfective gastroenteritis and colitis, unspecified (principal); N39.0 Urinary tract infection, site not specified
CPT/HCPCS: 74177; 80053; 81001; 81025; 83690; 85025; 87086; 96361; 96365; 96375; 99283; J0696; J2765; J7030; Q9967